=== PATIENT | female | born 1985 | race Caucasian/White ===

== ENCOUNTER 2017-03-23 09:20 | Emergency (ER) | payer OTHER ==
[~2017-03-23] VITALS: Ht 165.1 cm; Wt 64.4 kg
[~2017-03-23 09:20] MED LIST: PRILOSEC40 MG PO
--- OUTSIDE RECORDS SUMMARY | 2017-03-23 09:30 | External Medical Summary Rpt ---
Author Author [facility] [facility]al[facility], [facility] Organization [employer] Address Unknown Phone Unavailable
--- OUTSIDE RECORDS SUMMARY | 2017-03-23 09:30 | External Medical Summary Rpt | CCD ---
Author Author [employer] Organization [employer] Address Unknown Phone Unavailable Purpose Continuity of Care Document - through 2016
--- OUTSIDE RECORDS SUMMARY | 2017-03-23 09:30 | External Medical Summary Rpt | CCD ---
Demographics Preferred Language Pakistani Marital Status Unknown Yarsanism Affiliation Unknown Race Unknown Ethnic Group Unknown Author Author , [facility] KINCAID Address Unknown Phone Immunization Unable to retrieve immunization data due to connection failure with Immunization Registry. Please try again later.
--- OUTSIDE RECORDS SUMMARY | 2017-03-23 09:30 | External Medical Summary Rpt | CCD ---
Demographics Preferred Language Panamanian Marital Status Unknown Buddhism Affiliation Unknown Race Unknown Ethnic Group Unknown Author Author , [facility]I KINCA[employer] Address Unknown Phone Immunization Unable to retrieve immunization data due to connection failure with Immunization Registry. Please try again later.
--- OUTSIDE RECORDS SUMMARY | 2017-03-23 09:30 | External Medical Summary Rpt | CCD ---
Author Author [facility] Address Unknown Phone Purpose Continuity of Care Document - through 2016
--- NOTE | 2017-03-23 09:37 | Urgent Treatment Center Report ---
History of Present Issue Date/Time Seen by Provider 03/23/17 0937 Visit Reason Pt arrived:Walked Presenting Problem:SINUS PRESSURE AND CINGESTION X 1 WEEK Location if Accident: Onset of symptoms date/time:/ or onset unknown for:MEDICAL HX UNKNOWN Have you (or family members/close friends) recently traveled outside the [place]? N If Yes, where/when: Have you had exposure to infectious disease within the past month? TB? Other? Specify: c/o sinus pressure since last thursday, over one week now. sinus rinse helped initially "I thought it fixed me actually". Starting getting much worse Wed. Rhinorrhea thick and green, nasal congestion, ear pressure, headaches "but no sinus pressure again". Getting worse since despite tylenol cold, snus rinses, mucinex. feeling feverish w/ malaise. Sudafed today but not sure if helping. Currently . Source patient Exam Limitations no limitations ALLERGIES Coded Allergies: Sulfa (Sulfonamide Antibiotics) (Intermediate, 03/23/17) Home Medications Reported Medications Omeprazole (Prilosec 40mg Cap) 40 MG PO DAILY History Medical History General CAD? No Angina: No AL: No Hypertension? No Hyperlipidemia? No CHF? No COPD? No Asthma? No Anemia? No Hernia? No Thyroid Problems? No Hypothyroidism? No CVA? No Seizures? No Diabetes? No UTI? No Stones? No GB Disease: No Nephritic Syndrome? No Asplenia? No Hepatitis? No Sickle Cell Disease? No Arthritis? No Cataracts? No Glaucoma? No MRSA? No TB? No Cancer? No Immunization HX DT/Tetanus 1-4 Years Ago Surgical Hx Previous Surgery?N Social History Smoking Hx Smoker: Never Smoker Tobacco: No Alcohol Alcohol: Yes Review of Systems All Other Systems Reviewed and Negative Constitutional see HPI Eyes denies drainage, denies other (itchy) ENT see HPI, throat pain (intermittently,at night,scrtch). denies: ear discharge. Respiratory denies cough Gastrointestinal denies no symptoms reported Musculoskeletal denies neck pain Skin denies lesions, denies lumps, denies rash Psychiatric/Neurological see HPI Physical Exam Vital Signs Vital Signs Date Time Temp Pulse Resp B/P Pulse O2 O2 Flow FiO2 Ox Delivery Rate 03/23 1014 98.1 100 20 124/82 96 03/23 0934 98.1 100 20 124/82 96 General Appearance no apparent distress Eye Exam - bilateral eye normal exam Ear, Nose, Throat minimal left maxillary and frontal sinus tenderness, francisco TMs and EACs normal, thick PND, nasal congestion Neck non-tender, supple Respiratory Status No: respiratory distress, productive cough, non productive cough. Lung Sounds anterior: lungs clear. posterior: lungs clear. bilateral: lungs clear. Cardiovascular no peripheral edema, no murmur, tachycardia Neurologic alert, hospitality ambassador II-XII nml as tested, oriented x 3 Skin normal color, warm/dry Lymphatic no adenopathy Medical Decision Making LABS/Meds/Orders Pt receiving controlled substance in ED? No Departure Departure Time of Disposition 1001 Disposition DC Home or Self Care(routine) Clinical Impression Primary Impression: Sinusitis Qualifiers: Sinusitis location: ethmoidal Chronicity: acute Recurrence: non- recurrent Qualified Code: J01.20 - Acute ethmoidal sinusitis, unspecified Secondary Impressions: Upper respiratory infection, acute Condition STABLE Referrals NO REFERRAL Follow up with primary care IMMEDIATELY for new or worsening symptoms OR no noticeable improvement over the next 72 hours. 911 for difficulty breathing or swallowing. Patient Instructions DI for Sinusitis Additional Instructions * Start antibiotic and be sure to take as ordered for the FULL length of time even if you feel better. Sinus infections do not get better overnight. It may take 2-3 days to notice much improvement so be sure to use conservative measures as discussed for symptoms. * augmentin can cause GI side effects. Probiotics help prevent these symptoms. Pt reports she is already taking probiotics * remember the possible side effects seen in nursing children of mother taking augmentin. Monitor for rash, thrush, diarrhea, urticaria, somnolence and be sure to report symptoms. * Discussed steroids while nursing. mother plans to try to improve without steroids at this time except nasal steroid. Will follow up if no improvement. * Flonase 2 sprays each nostril daily to help with nasal congestion, sinus and ear pressure/inflammation * Lots of fluids * Sleep elevated * Humidifier/vaporizer * continue sinus rinses Discharge Counseling Counseled pt/family regarding diagnosis, medications/RX, home care, follow up needs Prescriptions Current Visit Scripts Fluticasone Propionate (Flonase 50 Mcg Nasal [place]) 2 SPRAY NA DAILY #1 BOT Amoxicillin/Potassium Clav (Augmentin 875-125 Tablet) 1 EACH PO BID #20 TAB at 4305
[2017-03-23] MEDS ORDERED: AUGMENTIN 875-1 EACH PO (10:01)
[2017-03-23] MEDS ORDERED: FLONASE 50 MCG16 GM (10:01)
[2017-03-23 10:14] VITALS: BP 124/82
== END 2017-03-23 10:14 | disposition home or self-care (01) ==
LOC: UTC 09:20
DX: J01.20 Acute ethmoidal sinusitis, unspecified (principal); J06.9 Acute upper respiratory infection, unspecified; Z79.899 Other long term (current) drug therapy